=== PATIENT | male | born 1990 | race American Indian/Alaskan Native ===

== ENCOUNTER 2016-11-16 13:15 | Emergency (ER) | payer BC, OTHER ==
[2016-11-16 13:31] VITALS: TEMP 97.6
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
[2016-11-16 14:51] VITALS: BP 105/64; PULSE 85; RESP 18; O2SAT 99
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
== END 2016-11-16 14:52 | disposition home or self-care (01) ==
LOC: C.ER 13:15
DX: S39.012A Strain of muscle, fascia and tendon of lower back, initial encounter (principal); V43.62XA Car passenger injured in collision with other type car in traffic accident, initial encounter